=== PATIENT | female | born 2000 | race Caucasian/White ===

== ENCOUNTER → 2022-07-11 13:43 | Outpatient (CLI) | payer OTHER, SELFPAY | PROVIDERS: PCP Nurse Practitioner Family; Visit Provider Nurse Practitioner Family | DX: R73.9 Hyperglycemia, unspecified (principal) | CPT/HCPCS: 83036 ==

== ENCOUNTER → 2023-01-28 10:00 | Outpatient (CLI) | payer OTHER, SELFPAY ==
[2023-01-28 17:06] LABS: Basophils % 0.5 % (0.1-2.0); Eosinophils # 0.1 K/mm3 (0.0-0.4); Eosinophils % 1.3 % (0.1-12.0); Hemoglobin 13.8 g/dL (12.2-16.2); Lymphocytes % 21.9 % (10-50); Mean Corpuscular HGB Conc 31.3 g/dL (31.8-35.4); Mean Corpuscular Volume 83.2 fl (81-99); Mean Platelet Volume 8.4 fl (7.4-10.4); Monocytes # 0.4 K/mm3 (0.1-1.0); Monocytes % 4.5 % (1.7-9.3); Neutrophils # 6.7 K/mm3 (1.8-7.8); Neutrophils % 71.9 % (37.0-80.0); Platelet Count 428 K/mm3 (142-424); Red Blood Count 5.28 M/mm3 (4.20-5.40); Red Cell Distribution Width 15.6 % (11.5-17.5); White Blood Count 9.3 K/mm3 (4.8-10.8)
[2023-01-28 17:10] LABS: Chloride 103 mmol/L (98-107); Potassium 4.2 mmoL/L (3.5-5.1); Sodium 141 mmol/L (136-145)
[2023-01-28 17:12] LABS: Alanine Aminotransferase 35 U/L (12-78); Aspartate Amino Transferase 33 U/L (14-36); Blood Urea Nitrogen 6 mg/dl (7-17); Estimated Glomerular Filt Rate 122 ml/min (>60); GFR (African American) 147 ML/MIN (>60)
[2023-01-28 17:13] LABS: Albumin Level 4.2 g/dl (3.5-5.0); Albumin/Globulin Ratio 1.3 (1.1-1.8); Alkaline Phosphatase 94 U/L (38-126); Anion Gap 14.2 mEq/L (5-15); Bilirubin,Total 0.5 mg/dl (0.2-1.3); Calcium 9.4 mg/dl (8.4-10.2); Carbon Dioxide 28 mmol/L (22.0-30.0); Cholesterol 169 mg/dl (140-200); Globulin 3.2 g/dL (1.3-3.2); Glucose 104 mg/dl (74-100); HDL Cholesterol 34 mg/dl (40-60); Total Protein,Serum 7.4 g/dl (6.3-8.2); Triglycerides 109 mg/dl (30-150); VLDL Cholesterol 22 mg/dL (0-40)
[2023-01-28 17:23] LABS: Hemoglobin A1C 5.7 % (4.0-6.0)
[2023-01-28 17:24] LABS: Direct LDL Cholesterol 129.04 mg/dL (100-129)
[2023-01-28 17:44] LABS: Thyroid Stimulating Hormone 3.14 uIU/mL (0.465-4.68)
== END ==
PROVIDERS: PCP Nurse Practitioner Family; Visit Provider Nurse Practitioner Family
DX: E03.9 Hypothyroidism, unspecified (principal); E78.5 Hyperlipidemia, unspecified; Z79.899 Other long term (current) drug therapy
CPT/HCPCS: 80053; 80061; 83036; 84443; 85025

== ENCOUNTER 2023-03-17 17:09 | Emergency (ER) | payer OTHER, SELFPAY ==
[2023-03-17 17:11] VITALS: BP 148/77; PULSE 125; RESP 18; TEMP 36.8; O2SAT 100; BMI 55.7
[2023-03-17 17:35] LABS: Microscopic, Urine URINE MICROSCOPIC (MICROSCOPIC)
[2023-03-17 17:38] LABS: Appearance,Urine CLEAR (Clear); Bilirubin,Urine Negative (Negative); Blood, Urine 3+ (Negative); Color,Urine YELLOW (Yellow); Glucose,Urine (UA) Negative (Negative); Ketones,Urine Negative (Negative); Leukocyte Esterase,Urine Negative (Negative); Nitrate,Urine Negative (Negative); Protein,Urine TRACE (Negative)
[2023-03-17 17:40] LABS: Urine Pregnancy, HCG Qual. Negative (Negative)
--- NOTE | 2023-03-17 17:46 | HMH.EDGENADL ---
Discharge Plan Disposition Patient Disposition: Home, Self-Care Prescriptions Prescriptions: No Action metoprolol succinate 25 mg tablet extended release 24 hr 25 mg PO DAILY triamcinolone acetonide 0.1 % cream 1 applic topical DAILY 30 Days Qty: 15 2RF clotrimazole [Clotrimazole AF] 1 % cream 1 applic topical BID 28 Days Qty: 45 2RF metformin 500 mg tablet extended release 24 hr 500 mg PO DAILY 90 Days Qty: 90 0RF venlafaxine 75 mg capsule,extended release 24hr 75 mg PO DAILY Qty: 30 5RF atorvastatin 40 mg tablet 40 mg PO HS Qty: 90 1RF levothyroxine 75 mcg tablet 75 mcg PO DAILY 90 Days Qty: 90 1RF Referrals Follow up/Referrals: Que Bhatia MD [Primary Care Provider] - See instructions Activity Restrictions/Add. Instructions Additional Instructions/Restrictions: Your test was negative and your urinalysis did not demonstrate any obvious evidence of infection. Please follow-up with your [facility] doctor to discuss your IUD and your breakthrough bleeding. There are many options regarding hormone therapy and neck steps. Return with any significant abdominal pain. I have no concern clinically of any IUD erosion to warrant any CT imaging or emergency evaluation IUD migration. Return with any significant abdominal pain or other concerns. Clinical Impressions Clinical Impression: Abnormal uterine bleeding Discharge ED Provider: Shiva Grossman General Adult HPI General Chief complaint: Vaginal Bleeding Stated complaint: wants IUD checked Time Seen by Provider: 03/17/23 17:38 Mode of Arrival: Ambulatory Limitations: No Limitations Description of Symptoms (Recalled from ER Triage Doc. by RN): c/o bleeding that started today, pt states some frequent and burning with urination. Pt is afraid that her IUD that got placed one year has moved or causing her bleeding. History of Present Illness HPI narrative: Patient is a 23-year-old female presenting today with chronic urinary urgency. States this is not significantly changed recently. She has had some breakthrough vaginal bleeding after having an IUD placed 1 year ago. She is here with concerns that it may have dislodged or moved. She denies any abdominal pain or any other symptoms. Related Data Home Medications Medication Instructions Recorded Confirmed metoprolol succinate 25 mg 25 mg PO DAILY 06/11/22 01/28/23 tablet,extended release 24 hr Previous Rx's Medication Instructions Recorded triamcinolone acetonide 0.1 % 1 applic topical DAILY 30 days #15 11/04/22 topical cream grams clotrimazole 1 % topical cream 1 applic topical BID 4 weeks #45 12/17/22 (Clotrimazole AF) grams metformin 500 mg tablet,extended 500 mg PO DAILY Diabetes 90 days 01/17/23 release 24 hr #90 tabs atorvastatin 40 mg tablet 40 mg PO HS #90 tabs 01/29/23 levothyroxine 75 mcg tablet 75 mcg PO DAILY 90 days #90 tabs 01/29/23 venlafaxine 75 mg capsule,extended 75 mg PO DAILY #30 caps 01/29/23 release 24 hr Allergies Allergy/AdvReac Type Severity Reaction Status Date / Time No Known Allergies Allergy Verified 01/28/23 09:06 [facility] Disclaimer: The information contained in this section may have been updated after the patient was seen, as this information can be updated by other users. Medical History Hyperlipidemia Hypothyroid Surgical History History of dilation and curettage Family History Mother Hyperlipidemia Hypertension Thyroid disorder Father Hypertension Hyperlipidemia Coronary artery disease Social History Smoking Status: Never smoker second hand exposure: No alcohol intake: never counseling given: No current occupational status: unemployed Travel in the last 8 weeks
[2023-03-17 17:47] LABS: WBC,Urine Occasional #/hpf (0-3)
[2023-03-17 17:53] VITALS: BP 106/60; PULSE 111; RESP 18; TEMP 36.8; O2SAT 98
== END 2023-03-17 18:00 | disposition home or self-care (01) ==
PROVIDERS: Emergency Provider Student in an Organized Health Care Education/Training Program; PCP Family Medicine
DX: T83.89XA Other specified complication of genitourinary prosthetic devices, implants and grafts, initial encounter (principal); N93.9 Abnormal uterine and vaginal bleeding, unspecified; E03.9 Hypothyroidism, unspecified; E78.5 Hyperlipidemia, unspecified
CPT/HCPCS: 81001; 81025; 99283

== ENCOUNTER → 2023-05-06 13:02 | Outpatient (CLI) | payer OTHER, SELFPAY | LOC: LAB.DROPOF 13:03 | PROVIDERS: PCP Family Medicine; Visit Provider Family Medicine | DX: B96.29 Other Escherichia coli [E. coli] as the cause of diseases classified elsewhere (principal) | CPT/HCPCS: 87086; 87088; 87186 ==

== ENCOUNTER 2023-10-22 18:05 | Outpatient (CLI) | payer OTHER, SELFPAY ==
[2023-10-22 16:49] LABS: Basophils % 0.4 % (0.1-2.0); Eosinophils # 0.2 K/mm3 (0.0-0.4); Eosinophils % 1.5 % (0.1-12.0); Hematocrit 46.3 % (37.0-47.0); Hemoglobin 14.5 g/dL (12.2-16.2); Lymphocytes % 19.9 % (10-50); Mean Corpuscular HGB Conc 31.3 g/dL (31.8-35.4); Mean Corpuscular Hemoglobin 27.4 pg (27.0-31.2); Mean Corpuscular Volume 87.6 fl (81-99); Monocytes # 0.5 K/mm3 (0.1-1.0); Monocytes % 4.7 % (1.7-9.3); Neutrophils # 7.5 K/mm3 (1.8-7.8); Neutrophils % 73.5 % (37.0-80.0); Platelet Count 390 K/mm3 (142-424); Red Blood Count 5.29 M/mm3 (4.20-5.40); Red Cell Distribution Width 14.7 % (11.5-17.5); White Blood Count 10.2 K/mm3 (4.8-10.8)
[2023-10-22 16:55] LABS: Alanine Aminotransferase 32 U/L (12-78); Albumin Level 4.2 g/dl (3.5-5.0); Albumin/Globulin Ratio 1.4 (1.1-1.8); Alkaline Phosphatase 84 U/L (38-126); Aspartate Amino Transferase 32 U/L (14-36); Bilirubin,Total 0.7 mg/dl (0.2-1.3); Blood Urea Nitrogen 12 mg/dl (7-17); Calcium 9.5 mg/dl (8.4-10.2); Carbon Dioxide 30 mmol/L (22.0-30.0); Chloride 103 mmol/L (98-107); Chol/HDL Ratio 5.1 (1-3.5); Cholesterol 152 mg/dl (140-200); Estimated Glomerular Filt Rate 122 ml/min (>60); GFR (African American) 147 ML/MIN (>60); Glucose 126 mg/dl (74-100); HDL Cholesterol 30 mg/dl (40-60); Sodium 139 mmol/L (136-145); Total Protein,Serum 7.2 g/dl (6.3-8.2); Triglycerides 123 mg/dl (30-150); VLDL Cholesterol 25 mg/dL (0-40)
[2023-10-22 17:06] LABS: Direct LDL Cholesterol 96.93 mg/dL (100-129)
[2023-10-22 17:25] LABS: Thyroid Stimulating Hormone 3.22 uIU/mL (0.465-4.68)
[2023-10-22 18:40] LABS: Hemoglobin A1C 5.8 % (4.0-6.0)
== END 2023-10-22 23:59 ==
LOC: LAB.DROPOF 18:05
PROVIDERS: PCP Nurse Practitioner Family; Visit Provider Nurse Practitioner Family
DX: E03.9 Hypothyroidism, unspecified (principal); E78.5 Hyperlipidemia, unspecified
CPT/HCPCS: 80053; 80061; 83036; 84443; 85025

== ENCOUNTER 2024-01-20 16:08 | Outpatient (CLI) | payer OTHER, SELFPAY ==
[2024-01-20 16:55] LABS: Hemoglobin A1C 5.6 % (4.0-6.0)
[2024-01-20 17:00] LABS: Thyroid Stimulating Hormone 4.12 uIU/mL (0.465-4.68)
== END 2024-01-20 23:59 | disposition home or self-care (01) ==
LOC: LAB.DROPOF 16:10
PROVIDERS: PCP Nurse Practitioner Family; Visit Provider Nurse Practitioner Family
DX: E03.9 Hypothyroidism, unspecified (principal); R73.03 Prediabetes
CPT/HCPCS: 83036; 84443

== ENCOUNTER 2025-01-13 09:35 | Outpatient (CLI) | payer OTHER, SELFPAY ==
[2025-01-13 16:51] LABS: Basophils % 0.6 % (0.1-2.0); Eosinophils # 0.1 Kmm3 (0.0-0.4); Hematocrit 43.6 % (37.0-47.0); Hemoglobin 13.7 g/dL (12.2-16.2); Immature Granulocytes # 0.06 10^3uL; Immature Granulocytes % 0.8 %; Lymphocytes # 1.7 K/mm3 (0.7-4.5); Lymphocytes % 23.4 % (10-50); Mean Corpuscular HGB Conc 31.4 g/dL (31.8-35.4); Mean Corpuscular Hemoglobin 27.3 pg (27.0-31.2); Mean Corpuscular Volume 86.9 fl (81-99); Mean Platelet Volume 9.8 fl (7.4-10.4); Monocytes # 0.4 K/mm3 (0.1-1.0); Monocytes % 5.8 % (1.7-9.3); Neutrophils # 4.9 K/mm3 (1.8-7.8); Neutrophils % 68.4 % (37.0-80.0); Nucleated Red Blood Cells # 0 10^3/uL; Nucleated Red Blood Cells % 0 %; Platelet Count 363 K/mm3 (142-424); Red Blood Count 5.02 M/mm3 (4.20-5.40); Red Cell Distribution Width 13.8 % (11.5-17.5); Red Cell Distribution Width-SD 43.8 fL; White Blood Count 7.2 K/mm3 (4.8-10.8)
[2025-01-13 17:03] LABS: Alanine Aminotransferase 24 U/L (12-78); Albumin Level 4.6 g/dl (3.5-5.0); Albumin/Globulin Ratio 1.8 (1.1-1.8); Alkaline Phosphatase 71 U/L (38-126); Anion Gap 13.2 mEq/L (5-15); Aspartate Amino Transferase 24 U/L (14-36); Bilirubin,Total 0.7 mg/dl (0.2-1.3); Blood Urea Nitrogen 12 mg/dl (7-17); Calcium 9.3 mg/dl (8.4-10.2); Carbon Dioxide 26 mmol/L (22.0-30.0); Chloride 104 mmol/L (98-107); Chol/HDL Ratio 4.5 (1-3.5); Cholesterol 168 mg/dl (140-200); Estimated Glomerular Filt Rate 121 ml/min (>60); GFR (African American) 146 ML/MIN (>60); Globulin 2.6 g/dL (1.3-3.2); Glucose 105 mg/dl (74-100); HDL Cholesterol 37 mg/dl (40-60); Potassium 4.2 mmoL/L (3.5-5.1); Sodium 139 mmol/L (136-145); Total Protein,Serum 7.2 g/dl (6.3-8.2); Triglycerides 71 mg/dl (30-150); VLDL Cholesterol 14 mg/dL (0-40)
[2025-01-13 17:14] LABS: Direct LDL Cholesterol 124.01 mg/dL (100-129)
[2025-01-13 17:32] LABS: Thyroid Stimulating Hormone 2.66 uIU/mL (0.465-4.68)
[2025-01-13 17:43] LABS: HIV Combo NEGATIVE (Negative)
[2025-01-13 18:23] LABS: Hepatitis C Ab Qual. W/ RFX NEGATIVE (Negative)
[2025-01-13 19:44] LABS: Hemoglobin A1C 5.6 % (4.0-6.0)
== END 2025-01-13 23:59 | disposition home or self-care (01) ==
LOC: LAB.DROPOF 01-14 11:21
PROVIDERS: PCP Nurse Practitioner Family; Visit Provider Nurse Practitioner Family
DX: Z11.59 Encounter for screening for other viral diseases (principal); E11.9 Type 2 diabetes mellitus without complications; E03.9 Hypothyroidism, unspecified; E78.5 Hyperlipidemia, unspecified; E66.9 Obesity, unspecified; Z68.43 Body mass index [BMI] 50.0-59.9, adult
CPT/HCPCS: 80053; 80061; 83036; 84443; 85025; 86803; 87389